=== PATIENT | female | born 1950 | race Caucasian/White ===

== ENCOUNTER 2016-09-16 08:38 | Outpatient (CLI) | payer OTHER | END 2016-09-16 18:21 | disposition home or self-care (01) | LOC: SMA 08:38 | PROVIDERS: ATTEND Family Medicine | DX: Z12.31 Encounter for screening mammogram for malignant neoplasm of breast (principal) | CPT/HCPCS: G0202 ==

== ENCOUNTER 2018-07-26 09:09 | Outpatient (CLI) | payer OTHER | END 2018-07-27 21:20 | disposition home or self-care (01) | LOC: SMA 09:09 | PROVIDERS: ATTEND Family Medicine | DX: Z12.31 Encounter for screening mammogram for malignant neoplasm of breast (principal) | CPT/HCPCS: 77067 ==